=== PATIENT | female | born 1950 | race African-American/Black ===

== ENCOUNTER 2024-07-07 22:56 | Emergency (ER) | payer OTHER ==
[2024-07-07 23:25] VITALS: PULSE 72; O2SAT 99
[2024-07-08 00:20] LABS: BASOPHILS % 0.2 % (0.0-2.0); HEMATOCRIT. 34.5 % (36.0-48.0); HEMOGLOBIN. 11.3 g/dL (12.0-16.0); MEAN CORPUSCULAR HEMOGLOBIN 30.3 pg (28.0-32.0); MEAN CORPUSCULAR HGB CONC 32.7 g/dL (31.0-37.0); MEAN CORPUSCULAR VOLUME 92.6 fL (81.0-99.0); MEAN PLATELET VOLUME 6.9 fl (7.4-10.4); MONOCYTES % 6.4 % (2.0-8.0); NEUTROPHILS % 81.4 % (40.0-76.0); PLATELET 379 x1000/uL (130-400); RED BLOOD CELL COUNT 3.73 mill/uL (4.2-5.4); RED CELL DISTRIBUTION WIDTH 14.3 % (11.6-14.6); WHITE BLOOD COUNT 14.2 x1000/uL (4.5-11.0)
[2024-07-08 00:25] LABS: CARBON DIOXIDE 28 mEq/L (21-32); CHLORIDE 102 mEq/L (98-107); POTASSIUM 3.6 mEq/L (3.5-5.1); SODIUM 137 mEq/L (136-145)
[2024-07-08 00:26] LABS: CALCIUM 9.6 mg/dL (8.7-10.4)
[2024-07-08 00:30] LABS: CREATININE 1.1 mg/dL (0.6-1.0)
[2024-07-08 00:31] LABS: GLUCOSE 149 mg/dL (70-105); UREA NITROGEN BLOOD 12 mg/dL (9-23)
[2024-07-08 00:32] LABS: ALANINE AMINOTRANSFERASE 14 IU/L (10-49); ALBUMIN 4.1 g/dL (3.2-4.8); ASPARTATE AMINOTRANSFERASE 23 IU/L (<34)
[2024-07-08 00:33] LABS: BILIRUBIN TOTAL 0.4 mg/dL (0.1-1.0); PROTEIN TOTAL 7.8 g/dL (6.0-8.3)
[2024-07-08 00:54] LABS: BILIRUBIN DIRECT < 0.1 mg/dL (<=3.0)
[2024-07-08] MEDS: ONDANSETRON HCL 4MG TABLET PO ONE (01:39)
[2024-07-08] MEDS: KETOROLAC 15MG/ML VIAL IM ONE (01:39)
[2024-07-08] MEDS ORDERED: NAPR-1176 MT (02:16)
== END 2024-07-08 02:30 | disposition home or self-care (01) ==
LOC: ER 22:56
DX: M79.642 Pain in left hand (principal); G56.00 Carpal tunnel syndrome, unspecified upper limb; R11.2 Nausea with vomiting, unspecified; Z79.1 Long term (current) use of non-steroidal anti-inflammatories (NSAID)
CPT/HCPCS: 99284; 80076; 80048; 83690; 85025; 36415; 73130; 96372; Q0162; J1885